=== PATIENT | male | born 1965 | race Caucasian/White ===

== ENCOUNTER → 2017-08-06 | Emergency (ER) | payer OTHER ==
[~2017-08-06] VITALS: Ht 157.5 cm; Wt 68.0 kg
[~2017-08-06] MED LIST: ATACAND32 MG; DICY20TA; LOPRESSOR25 MG; MACRODANTIN100 MG; NAMENDA5 MG; NEURONTIN300 MG; ZOCOR20 MG; ZOLOFT50 MG; ZYRTEC10 MG
== END | disposition home or self-care (01) ==
LOC: ER 10:24
DX: R10.84 Generalized abdominal pain (principal)

== ENCOUNTER 2018-07-31 06:15 | Day surgery (SDC) | payer OTHER | END 2018-07-31 13:45 | disposition home or self-care (01) | LOC: AMB-ENDOS 06:15 | DX: K59.09 Other constipation (principal) ==

== ENCOUNTER 2019-01-09 10:02 | Inpatient (IN) | payer OTHER ==
[~2019-01-09] VITALS: Ht 157.5 cm; Wt 66.2 kg
[2019-01-15] MEDS ORDERED: ZANTAC300 MG PO (12:28)
[2019-01-27] MEDS ORDERED: METOPROLOL TART50 MG PO (08:19)
[2019-01-27] MEDS ORDERED: AMLODIPINE BESY10 MG PO (08:19)
[2019-01-27] MEDS ORDERED: ATACAND32 MG PO (08:19)
[2019-01-27] MEDS ORDERED: APRESOLINE 10MG10 MG PO (08:20)
[2019-01-27] MEDS ORDERED: LEVAQUIN500 MG PO (08:22)
== END 2019-01-27 12:20 | disposition home or self-care (01) | DRG 419 ==
LOC: SURG 01-15 10:15 → O/R 01-21 06:40 → SURG 01-21 06:40
PROVIDERS: ADMIT Surgery
PROC: BF13YZZ Fluoroscopy of Gallbladder and Bile Ducts using Other Contrast (ICD-10-PCS; 2019-01-21)
PROC: 0FT44ZZ Resection of Gallbladder, Percutaneous Endoscopic Approach (ICD-10-PCS; principal; 2019-01-21 09:00)
PROC: B246ZZZ Ultrasonography of Right and Left Heart (ICD-10-PCS; 2019-01-26)
DX: K81.1 Chronic cholecystitis (principal); I97.3 Postprocedural hypertension; R41.841 Cognitive communication deficit; N31.8 Other neuromuscular dysfunction of bladder; G80.8 Other cerebral palsy; K59.09 Other constipation; Z90.49 Acquired absence of other specified parts of digestive tract

== ENCOUNTER 2019-03-06 10:33 | Emergency (ER) | payer OTHER ==
[~2019-03-06] VITALS: Ht 157.5 cm; Wt 62.1 kg
[~2019-03-06 10:33] MED LIST changes: +AMLODIPINE BESY10 MG PO; +APRESOLINE 10MG10 MG PO; +ATACAND32 MG PO; +LEVAQUIN500 MG PO; +METOPROLOL TART50 MG PO; +ZANTAC300 MG PO
[2019-03-06] MEDS ORDERED: ZOLOFT50 MG (11:28)
[2019-03-06] MEDS ORDERED: NEURONTIN300 MG (11:29)
[2019-03-06] MEDS ORDERED: DICYCLOMINE HCL20 MG (11:30)
== END 2019-03-06 16:39 | disposition home or self-care (01) ==
LOC: ER 10:33
DX: N39.0 Urinary tract infection, site not specified (principal)

== ENCOUNTER 2022-07-27 11:22 | Emergency (ER) | payer OTHER ==
[~2022-07-27] VITALS: Ht 157.5 cm; Wt 69.9 kg
[~2022-07-27 11:22] MED LIST changes: +DICYCLOMINE HCL20 MG
[2022-07-27] MEDS ORDERED: HYDROCHLOROTH12.5 MG (12:30)
== END 2022-07-27 16:11 | disposition home or self-care (01) ==
LOC: ER 11:22
DX: R07.9 Chest pain, unspecified (principal); F03.90 Unspecified dementia, unspecified severity, without behavioral disturbance, psychotic disturbance, mood disturbance, and anxiety

== ENCOUNTER 2022-08-16 14:08 | Emergency (ER) | payer OTHER ==
[~2022-08-16] VITALS: Ht 157.5 cm; Wt 70.3 kg
[~2022-08-16 14:08] MED LIST changes: +HYDROCHLOROTH12.5 MG
== END 2022-08-16 22:01 | disposition home or self-care (01) ==
LOC: ER 14:08
DX: N39.0 Urinary tract infection, site not specified (principal)

== ENCOUNTER 2023-01-07 06:30 | Day surgery (SDC) | payer OTHER | END 2023-01-07 10:45 | disposition home or self-care (01) | LOC: AMB-ENDOS 06:30 → CIR.AMB 13:00 | PROVIDERS: ATTEND Surgery | DX: D12.0 Benign neoplasm of cecum (principal); K59.09 Other constipation; Z20.822 Contact with and (suspected) exposure to COVID-19; Z86.010 Personal history of colon polyps ==